=== PATIENT | female | born 1950 | race Caucasian/White ===

== ENCOUNTER → 2019-04-28 | Outpatient (CLI) | payer MEDICARE ==
[~2019-04-28] MED LIST: ASPIRIN EC81 MG PO; B-COMPLEX PO; DIOVAN80 MG PO; LEVOTHYROXINE25 MCG PO; OCUVITE LUTEIN1 EACH PO; SIMVASTATIN10 MG PO; TOVIAZ8 MG PO
--- NOTE | 2019-04-28 09:13 | Diagnostic Imaging Report ---
Thyroid ultrasound. History: Left thyroid lobectomy. Comparison: Outside ultrasound 04/05/2018. Discussion: Transverse and longitudinal images of the thyroid were obtained demonstrating mildly heterogeneous echogenicity of the right thyroid lobe. The right lobe measures 4.4 x 1.6 x 1.3 cm. The isthmus is within normal limits measuring 3 mm. No nodules are present. The 2 mm cyst seen on the prior exam is no longer present on today's study. IMPRESSION: Post left thyroid lobectomy. No evidence of thyroid nodule on the right. Signed by: Abdirahman Looney on 04/28/2019 9:10 AM
== END ==
LOC: US 08:21
PROVIDERS: ATTEND Otolaryngology
DX: E04.1 Nontoxic single thyroid nodule (principal)
CPT/HCPCS: 76536

== ENCOUNTER → 2020-03-26 | Outpatient (CLI) | payer MEDICARE ==
--- NOTE | 2020-03-26 11:16 | Diagnostic Imaging Report ---
Thyroid Ultrasound Clinical Diagnosis: Thyroid nodule. History of left thyroid lobectomy. Comparison: 04/28/2019 Technique: Multiple images were submitted for interpretation. Multiple longitudinal and transaxial images were performed with a high frequency linear transducer. Report: Right lobe: The right lobe measures 3.9 x 1.6 x 1.3. There are no nodules, cysts, calcifications or masses. Left lobe: The left lobe is surgically absent. The thyroid bed is clean. The isthmus measures 3 mm. Homogenous texture. Impression: Unremarkable right lobe of the thyroid gland. Status post left thyroid lobectomy with a clean thyroid bed. Signed by: Luis Harley MD on 03/26/2020 11:13 AM
== END ==
LOC: US 07:32
PROVIDERS: ATTEND Otolaryngology
DX: E04.1 Nontoxic single thyroid nodule (principal)
CPT/HCPCS: 76536

== ENCOUNTER → 2023-08-27 | Outpatient (REF) | payer MEDICARE | LOC: US 11:38 | PROVIDERS: ATTEND Student in an Organized Health Care Education/Training Program | DX: C73 Malignant neoplasm of thyroid gland (principal) | CPT/HCPCS: 76536 ==